=== PATIENT | male | born 1960 | race Caucasian/White ===

== ENCOUNTER 2024-01-26 08:17 | Emergency (ER) | payer OTHER ==
[~2024-01-26] VITALS: Ht 172.7 cm; Wt 90.0 kg
[2024-01-26 08:54] VITALS: BP 103/64; PULSE 89; RESP 18; TEMP 97.9; O2SAT 94
[2024-01-26] MEDS ORDERED: IOHEXOL 300 MG/ML 100ML BOTTLE IJ ONE (09:32)
[2024-01-26] MEDS ORDERED: TRAM-626 PO (09:40)
[2024-01-26] MEDS: HYDROcodone-ACET 10/325MG TAB PO ONE (09:42)
== END 2024-01-26 10:07 | disposition home or self-care (01) ==
LOC: ER 08:17
DX: S46.001A Unspecified injury of muscle(s) and tendon(s) of the rotator cuff of right shoulder, initial encounter (principal); E11.22 Type 2 diabetes mellitus with diabetic chronic kidney disease; I13.0 Hypertensive heart and chronic kidney disease with heart failure and stage 1 through stage 4 chronic kidney disease, or unspecified chronic kidney disease; N18.9 Chronic kidney disease, unspecified; I50.89 Other heart failure; W18.09XA Striking against other object with subsequent fall, initial encounter; Y93.02 Activity, running; Y92.89 Other specified places as the place of occurrence of the external cause; Y99.8 Other external cause status
CPT/HCPCS: 73030

== ENCOUNTER 2024-01-31 18:27 | Emergency (ER) | payer OTHER ==
[~2024-01-31] VITALS: Ht 172.7 cm; Wt 92.9 kg
[~2024-01-31 18:27] MED LIST: TRAM-626 PO
[2024-01-31 18:50] VITALS: BP 100/60; PULSE 84; RESP 18; O2SAT 97
== END 2024-01-31 22:10 | disposition left against medical advice (07) ==
LOC: ER 18:27
DX: M79.621 Pain in right upper arm (principal); Z53.21 Procedure and treatment not carried out due to patient leaving prior to being seen by health care provider